=== PATIENT | female | born 1950 | race Caucasian/White ===

== ENCOUNTER 2016-08-30 17:55 | Emergency (ER) | payer OTHER ==
[~2016-08-30] VITALS: Ht 160 cm; Wt 60.6 kg
[2016-08-30 18:02] VITALS: TEMP 36.8; Ht 160 cm; Wt 60.6 kg
[2016-08-30] MEDS ORDERED: SODIUM CHLORIDE 0.9% 1000ML 1,000 ML IV STA (18:15)
--- NOTE | 2016-08-30 18:18 | EMERGENCY ROOM VISIT NOTE ---
History Report prepared by Sharad: Lanny Sauceda Under the Supervision of: Dr. Ad Loaiza M.D. First contact with patient: 18:05 Chief Complaint: ABNORMAL LABS Stated Complaint: CHILLS FEVER,SENT History of Present Illness The patient is a 66 year old female who presents to the Emergency Room with complaints of persistent, increasing fatigue that began five days ago. The patient's states that Monday the patient began complaining of fatigue, muscle aches, and a decreased appetite. He states that the patient was evaluated by her PCP yesterday and had blood work drawn. The patient states that her blood work showed elevated liver enzymes and a low white blood cell count. She states that she vomited yesterday, but denies any questionable food sources. The patient additionally notes chills and pain in her left SI joint today. She does note that she is feeling much better than she did on Monday. Per records the patient's Lyme titer was negative. The patient denies any prolonged duration in the sun. Source of History: patient, spouse/significant other (), other ( records) Onset: five days ago Position: other (global) Quality: other (fatigue) Timing: other (persistent, increasing) Associated Symptoms: + chills, + vomiting Note: Associated Symptoms: elevated liver enzymes, low white blood cell count, pain in left SI joint Review of Systems See HPI for pertinent positives & negatives. A total of 10 systems reviewed and were otherwise negative. Past Medical & Surgical Medical Problems: (1) No active medical problems Family History Patient reports no known family medical history. Social History Smoking Status: Never Smoker Smokeless Tobacco Use: No Alcohol Use: none Marital Status: Housing Status: lives with significant other Occupation Status: retired Current/Historical Medications Scheduled Multivitamin (Multivitamin), 1 TAB PO DAILY Scheduled PRN Acetaminophen (Tylenol Arthritis Ext Rel), 1,300 MG PO Q8H PRN for Pain Ibuprofen (Advil), 200 MG PO Q8 PRN for Pain Miscellaneous Medications Biotin (Biotin), Unknown Dose Allergies Coded Allergies: No Known Allergies (Unverified , 08/30/16) Physical Exam Vital Signs Date Time Temp Pulse Resp B/P (MAP) Pulse Ox O2 Delivery O2 Flow Rate FiO2 08/30/16 20:38 91 20 138/73 97 Room Air 6/27/17 20:31 138/73 08/30/16 20:30 91 15 98 08/30/16 20:15 87 15 99 08/30/16 20:13 136/78 08/30/16 19:40 85 16 97 08/30/16 19:31 140/77 08/30/16 19:25 85 18 99 08/30/16 19:10 92 16 98 08/30/16 19:06 93 08/30/16 19:01 139/77 08/30/16 18:46 97 Room Air 08/30/16 18:02 36.8 94 18 152/75 97 Room Air Physical Exam GENERAL: Patient is a healthy-appearing well-nourished female HEAD: Normocephalic atraumatic EYES: Ocular movements intact pupils equal and react to light OROPHARYNX mucous membranes are moist no exudates present no erythema or edema present NECK: Supple no nuchal rigidity CHEST: Good equal expansion LUNGS: Clear and equal to auscultation CARDIAC: Normal S1 and S2 ABDOMEN: Soft nontender no guarding BACK: No CVA tenderness EXTREMITIES: No pain upon palpation normal muscle strength in all groups no clubbing cyanosis or edema NEURO: Patient is following commands and answering questions appropriately. Alert and oriented x3 Cranial Nerves 2-12 grossly intact Medical Decision & Procedures ER Provider Diagnostic Interpretation: Radiology results as stated below per my review and radiologist interpretation: ABDOMINAL ULTRASOUND, RIGHT UPPER QUADRANT HISTORY: Pain. Nausea. Pt c/o RUQ abd pain. COMPARISON: None. FINDINGS: Pancreas: The pancreas demonstrates a normal echotexture. Liver: Fatty infiltration Gallbladder: Small gallstone CBD: 5 mm Right kidney: Several parapelvic cysts. No evidence for hydronephrosis. IMPRESSION: Very small gallstone. Normal caliber bile ducts. Mild fatty infiltration of liver. Electronically signed by: Keven Carson M.D. 08/30/2016 8:14 PM Dictated Date/Time: 08/30/2016 8:14 PM Laboratory Results 08/30/16 18:37 Red Blood Count 4.68, Mean Corpuscular Volume 87.6, Mean Corpuscular Hemoglobin 30.1, Mean Corpuscular Hemoglobin Concent 34.4, Mean Platelet Volume 9.6, Neutrophils (%) (Auto) 43.7, Lymphocytes (%) (Auto) 40.4, Monocytes (%) (Auto) 13.0, Eosinophils (%) (Auto) 0.0, Basophils (%) (Auto) 2.5, Neutrophils # (Auto ) 1.21, Lymphocytes # (Auto) 1.12, Monocytes # (Auto) 0.36, Eosinophils # (Auto ) 0.00, Basophils # (Auto) 0.07 08/30/16 18:37 Test 08/30/16 18:20 08/30/16 18:37 08/30/16 20:15 Urine Color YELLOW Urine Appearance CLEAR (CLEAR) Urine pH 6.5 (4.5-7.5) Urine Specific [place] <= 1.005 (1.000-1.030) Urine Protein NEG (NEG) Urine Glucose (UA) NEG (NEG) Urine Ketones NEG (NEG) Urine Occult Blood TRACE (NEG) Urine Nitrite NEG (NEG) Urine Bilirubin NEG (NEG) Urine Urobilinogen NEG (NEG) Urine Leukocyte Esterase NEG (NEG) Urine RBC 0-4 /hpf (0-4) Urine WBC 0 /hpf (0-5) Urine Epithelial Cells 5-10 /lpf (0-5) Urine Bacteria NEG (NEG) White Blood Count 2.77 K/uL (4.8-10.8) Red Blood Count 4.68 M/uL (4.2-5.4) Hemoglobin 14.1 g/dL (12.0-16.0) Hematocrit 41.0 % (37-47) Mean Corpuscular Volume 87.6 fL (80-100) Mean Corpuscular Hemoglobin 30.1 pg (25-34) Mean Corpuscular Hemoglobin Concent 34.4 g/dl (32-36) Platelet Count 167 K/uL (130-400) Mean Platelet Volume 9.6 fL (7.4-10.4) Neutrophils (%) (Auto) 43.7 % Lymphocytes (%) (Auto) 40.4 % Monocytes (%) (Auto) 13.0 % Eosinophils (%) (Auto) 0.0 % Basophils (%) (Auto) 2.5 % Neutrophils # (Auto) 1.21 K/uL (1.4-6.5) Lymphocytes # (Auto) 1.12 K/uL (1.2-3.4) Monocytes # (Auto) 0.36 K/uL (0.11-0.59) Eosinophils # (Auto) 0.00 K/uL (0-0.5) Basophils # (Auto) 0.07 K/uL (0-0.2) RDW Standard Deviation 45.1 fL (36.4-46.3) RDW Coefficient of Variation 14.0 % (11.5-14.5) Immature Granulocyte % (Auto) 0.4 % Immature Granulocyte # (Auto) 0.01 K/uL (0.00-0.02) Anion Gap 6.0 mmol/L (3-11) Est Creatinine Clear Calc Drug Dose 53.8 ml/min Estimated GFR () 82.8 Estimated GFR (Non- 71.4 BUN/Creatinine Ratio 12.5 (10-20) Calcium Level 9.3 mg/dl (8.5-10.1) Ferritin 1915.5 ng/ml (8.0-388.0) Total Bilirubin 1.8 mg/dl (0.2-1) Direct Bilirubin 1.3 mg/dl (0-0.2) Aspartate Amino Transf (AST/SGOT) 412 U/L (15-37) Alanine Aminotransferase (ALT/SGPT) 397 U/L (12-78) Alkaline Phosphatase 756 U/L (45-117) Total Creatine Kinase 28 U/L (26-192) Total Protein 7.8 gm/dl (6.4-8.2) Albumin 3.6 gm/dl (3.4-5.0) Hepatitis C Antibody NEG (NEG) Monoscreen NEG (NEG) Prothrombin Time 10.7 SECONDS (9.0-12.0) Prothromb Time International Ratio 1.0 (0.9-1.1) Labs reviewed by ED physician. Medications Administered Medications (Trade) Dose Ordered Sig/John Route Start Time Stop Time Status Last Admin Dose Admin Sodium Chloride 1,000 ml @ 999 mls/hr Q1H1M STAT IV 08/30/16 18:15 08/30/16 19:15 DC 08/30/16 18:43 999 MLS/HR ED Course 1806: Past medical records reviewed. The patient was evaluated in room C4. A complete history and physical examination was performed. 1814: Ordered Sodium Chloride 1000 ml @ 999 mls/hr IV. 2013: I discussed the patients case with Dr. Regalado, Gastroenterology. He states that he will follow up with the patient tomorrow in the office. 2018: I reevaluated the patient and she is resting comfortably. I discussed the exam findings with her and I discussed the treatment plan. She verbalized complete understanding and agreement. She is ready to go home. Medical Decision Differential diagnosis: Etiologies such as appendicitis, diverticulitis, PUD, biliary pathology, UTI, pancreatitis, obstruction, mesenteric ischemia, aortic pathology, infections, inflammatory bowel disease, renal colic, as well as others were entertained. Medication Reconciliation: I attest that I have personally reviewed the patient' s current medication list Blood Pressure Screening: Patient was found to have an elevated blood pressure and was referred to their primary care doctor for recheck and further treatment This is a 66-year-old female who presents emergency department complaining of elevations in her liver enzymes. The patient reports she is been feeling fatigued for the past 5 days however felt that she was improving today. She was sent in for elevations in her liver enzymes. Based on this I hepatitis panel was drawn. The patient however feels well and is afebrile. I do believe that she can be sent home. I did discuss the case with gastroenterology who was in agreement however they asked to see the patient tomorrow. Patient and family were in agreement with the treatment plan. Consults Time Called: 2010 Consulting Physician: Dr. Regalado, Gastroenterology Returned Call: 2012 I discussed the patients case with Dr. Regalado, Gastroenterology. He states that he will follow up with the patient tomorrow in the office. Impression Primary Impression: Liver enzyme elevation Scribe Attestation The scribe's documentation has been prepared under my direction and personally reviewed by me in its entirety. I confirm that the note above accurately reflects all work, treatment, procedures, and medical decision making performed by me. Departure Information Dispostion Home / Self-Care Referrals Bailey Feng PA-C, Joel B., M.D. Forms HOME CARE DOCUMENTATION FORM, IMPORTANT VISIT INFORMATION, WORK / SCHOOL INSTRUCTIONS Patient Instructions My [facility] Additional Instructions Follow up with Dr Regalado's office STOP taking Tylenol You were found to have an elevated blood pressure today (>120 sytolic or >90 diastolic). Per medicare guidelines, you need to follow up with this blood pressure screening with your Primary Care Physician (PCP). For a new PCP call [phone]. You have been examined and treated today on an emergency basis only. This is not a substitute for, or an effort to provide, complete comprehensive medical care. It is impossible to recognize and treat all injuries or illnesses in a single emergency department visit. It is therefore important that you follow up closely with Dr Feng. Call as soon as possible for an appointment. Thank you for your time and consideration. I look forward to speaking with you again soon. Please don't hesitate to call us if you have any questions.
[2016-08-30] MEDS ORDERED: ACET1TAB84 PO (18:23)
[2016-08-30] MEDS ORDERED: MULT-506 PO (18:23)
[2016-08-30] MEDS ORDERED: BIOT1CAP8 (18:23)
[2016-08-30] MEDS ORDERED: IBUP-1050 PO (18:23)
[2016-08-30 18:46] VITALS: O2SAT 97
[2016-08-30 19:00] LABS: MANUAL MICROSCOPIC REQUIRED? YES; URINE APPEARANCE CLEAR (CLEAR); URINE BILIRUBIN NEG (NEG); URINE COLOR YELLOW; URINE NITRITE NEG (NEG); URINE PH 6.5 (4.5-7.5); URINE SPECIFIC GRAVITY <= 1.005 (1.000-1.030); UROBILINOGEN NEG (NEG)
[2016-08-30 19:04] LABS: REVIEW REQ? NO
[2016-08-30 19:10] LABS: BUN/CREATININE RATIO 12.5 (10-20); CALCIUM 9.3 mg/dl (8.5-10.1); CREATININE 0.85 mg/dl (0.60-1.20); POTASSIUM 3.8 mmol/L (3.5-5.1)
[2016-08-30 19:15] LABS: FERRITIN 1915.5 ng/ml (8.0-388.0)
[2016-08-30 19:23] LABS: BASO % 2.5 %; BASO ABS # 0.07 K/uL (0-0.2); COMPLETE YES; IG% 0.4 %; LYMPH % 40.4 %; LYMPH ABS # 1.12 K/uL (1.2-3.4); MEAN CELL VOLUME 87.6 fL (80-100); MEAN CORPUSCULAR HEMOGLOBIN 30.1 pg (25-34); MEAN CORPUSCULAR HGB CONC 34.4 g/dl (32-36); MEAN PLATELET VOLUME 9.6 fL (7.4-10.4); NEUT % 43.7 %; PLATELET COUNT 167 K/uL (130-400); RED BLOOD COUNT 4.68 M/uL (4.2-5.4); WHITE BLOOD COUNT 2.77 K/uL (4.8-10.8)
[2016-08-30 19:36] LABS: URINE BACTERIA NEG (NEG); URINE RBC 0-4 /hpf (0-4); URINE WBC 0 /hpf (0-5)
--- NOTE | 2016-08-30 20:16 | DIAGNOSTIC IMAGING REPORT ---
ABDOMINAL ULTRASOUND, RIGHT UPPER QUADRANT HISTORY: Pain. Nausea. Pt c/o RUQ abd pain. COMPARISON: None. FINDINGS: Pancreas: The pancreas demonstrates a normal echotexture. Liver: Fatty infiltration Gallbladder: Small gallstone CBD: 5 mm Right kidney: Several parapelvic cysts. No evidence for hydronephrosis. IMPRESSION: Very small gallstone. Normal caliber bile ducts. Mild fatty infiltration of liver. Electronically signed by: Keven Carson M.D. 08/30/2016 8:14 PM Dictated Date/Time: 08/30/2016 8:14 PM
[2016-08-30 20:34] LABS: PROTHROMBIN TIME (PATIENT) 10.7 SECONDS (9.0-12.0)
[2016-08-30 20:38] VITALS: BP 138/73; PULSE 91; O2SAT 97
[2016-09-02 21:37] LABS: ALPHA-1-ANTITRYPSIN TC 67710E 259 MG/DL (83-199)
== END 2016-08-30 20:51 | disposition home or self-care (01) ==
LOC: C.EDB 17:57 → C.EDC 20:51
DX: R74.8 Abnormal levels of other serum enzymes (principal); R19.7 Diarrhea, unspecified